=== PATIENT | male | born 1990 | race Caucasian/White ===

== ENCOUNTER 2024-10-27 15:31 | Emergency (ER) | payer MEDICAID ==
[~2024-10-27] VITALS: Ht 182.9 cm; Wt 71.7 kg
[2024-10-27] MEDS ORDERED: NALOXONE HCL 2 MG/2 ML SYR NAS ONE (15:45)
[2024-10-27] MEDS ORDERED: NALOXONE HCL 2 MG/2 ML SYR IV ONE ×2 (15:45)
[2024-10-27 15:48] LABS: BASOPHILS 0.2 % (0-2); EOSINOPHILS 0.4 % (0-6); HEMATOCRIT 44.9 % (35.0-50.0); HEMOGLOBIN 14.9 g/dL (12.0-18.0); LYMPHOCYTES 24.9 % (24-44); MCH 29.4 (27-36); MCHC 33.3 g/dl (30-36); MCV 88.5 fl (81-99); MONOCYTES 7.8 % (0-12); NEUTROPHILS 66.7 % (39-80); PLATELET COUNT 388 K/uL (140-440); RBC 5.07 M/ul (4.3-5.7); RDW 13.7 (10.5-15.0)
[2024-10-27 15:53] LABS: BUN/CREATININE RATIO 13.63 (6.0-28.6); CALCIUM 9.5 mg/dL (8.5-10.1); CREATININE, SERUM 1.1 mg/dL (0.70-1.30)
[2024-10-27] MEDS ORDERED: ondansetron HCL 4 MG/2 ML VIAL IV ONE (16:00)
[2024-10-27] MEDS ORDERED: SODIUM CHLORIDE 0.9% 1,000 ML IV PRN (16:00)
[2024-10-27] MEDS ORDERED: NALOXONE 4 MG NASAL SPRAY #2 HOME.PACK NAS ONE (18:45)
[2024-10-27 18:56] VITALS: BP 128/70
== END 2024-10-27 18:59 | disposition home or self-care (01) ==
LOC: ED 15:31 → EDBD 15:32 → ED 15:32
PROVIDERS: Emergency Medicine
DX: T40.411A Poisoning by fentanyl or fentanyl analogs, accidental (unintentional), initial encounter (principal); R40.4 Transient alteration of awareness
CPT/HCPCS: 36415; 80048; 85025; 94799; 96361; 96374; 96375; 99284-25; J2310; J2405; J3490; J7030